=== PATIENT | male | born 1960 | race Hispanic/Latino ===

== ENCOUNTER 2017-08-19 08:25 | Day surgery (SDC) | payer OTHER ==
[2017-08-16 11:47] VITALS: BMI 31.6
[2017-08-19] MEDS ORDERED: Propofol 10 mg/ml Inj (20 ML) ONE ×4 (08:41→10:05)
[2017-08-19] MEDS ORDERED: Simethicone 40 mg/0.6 ml Liquid (30 ml) ONE (09:37)
[2017-08-19] MEDS ORDERED: Sodium Chloride 0.9% 1,000 ML IV SCH (10:45)
[2017-08-19 11:20] VITALS: RESP 16
[2017-08-19 11:43] VITALS: BP 113/83; TEMP 98.5; O2SAT 97
[2017-08-19 11:44] VITALS: PULSE 60
== END 2017-08-19 12:00 | disposition home or self-care (01) ==
LOC: ENDO 08:25
PROVIDERS: ATTEND Internal Medicine Gastroenterology
DX: Z12.11 Encounter for screening for malignant neoplasm of colon (principal); D12.3 Benign neoplasm of transverse colon; D12.5 Benign neoplasm of sigmoid colon; D12.2 Benign neoplasm of ascending colon; K64.1 Second degree hemorrhoids; K57.30 Diverticulosis of large intestine without perforation or abscess without bleeding
CPT/HCPCS: 45385; 45390; 88305; J2704; J7040 ×2